=== PATIENT | female | born 1975 | race Caucasian/White ===

== ENCOUNTER 2021-09-08 13:43 | Inpatient (IN) | payer OTHER ==
[~2021-09-08] VITALS: Ht 154.9 cm; Wt 83.0 kg
[2021-09-08] MEDS ORDERED: CARDIZEM CD240 MG PO (15:04)
[2021-09-08] MEDS ORDERED: CITALOPRAM HBR10 MG PO (15:04)
[2021-09-08] MEDS ORDERED: LOSARTAN POTAS100 MG PO (15:05)
[2021-09-08] MEDS ORDERED: FAMOTIDINE20 MG PO (15:05)
[2021-09-08] MEDS ORDERED: CLEARLAX119 GM PO (15:05)
[2021-09-08] MEDS ORDERED: SENNA PLUS 8.61 EACH PO (15:06)
[2021-09-08] MEDS ORDERED: PROAIR HFA8.5 GM INH (15:06)
[2021-09-08] MEDS ORDERED: AMITRIPTYLINE H25 MG PO (15:06)
[2021-09-08] MEDS ORDERED: METOPROLOL TAR100 MG PO (15:07)
[2021-09-08] MEDS ORDERED: LYRICA300 MG PO (15:07)
[2021-09-08 19:18] LABS: HEMOGLOBIN 11.1 gm/dl (12.3-15.3); RED BLOOD COUNT 3.65 M/UL (4.00-5.10); WHITE BLOOD COUNT 7.1 K/UL (4.5-11.0)
[2021-09-08 19:32] LABS: BUN/CREATININE RATIO 5 (0-10)
--- NOTE | 2021-09-09 17:54 | NUR ---
montaño catheter discontinued with 350 ml yellow urine out.pt tolerated well.
[2021-09-10] MEDS ORDERED: NICOTINE PATCH1 EAC2 TD (12:01)
== END 2021-09-10 14:16 | disposition home or self-care (01) | DRG 389 ==
LOC: MED SURG 4 13:43
PROVIDERS: ADMIT Internal Medicine
DX: K56.600 Partial intestinal obstruction, unspecified as to cause (principal); N17.9 Acute kidney failure, unspecified; Z20.822 Contact with and (suspected) exposure to COVID-19; A08.0 Rotaviral enteritis; I69.351 Hemiplegia and hemiparesis following cerebral infarction affecting right dominant side; A04.72 Enterocolitis due to Clostridium difficile, not specified as recurrent; E87.2 Acidosis; I10 Essential (primary) hypertension; F32.A Depression, unspecified; G43.909 Migraine, unspecified, not intractable, without status migrainosus; I95.9 Hypotension, unspecified; J44.9 Chronic obstructive pulmonary disease, unspecified; F17.210 Nicotine dependence, cigarettes, uncomplicated; E86.0 Dehydration; I69.320 Aphasia following cerebral infarction; Z74.01 Bed confinement status; Z99.3 Dependence on wheelchair; Z98.51 Tubal ligation status; Z98.890 Other specified postprocedural states; Z83.3 Family history of diabetes mellitus; Z81.8 Family history of other mental and behavioral disorders; Z83.79 Family history of other diseases of the digestive system; Z81.1 Family history of alcohol abuse and dependence
CPT/HCPCS: 36415; 71045; 80053; 81001; 83605; 83735; 84100; 85025; 85610; 85730; 86140; 87040; 87086; 93005; 94760; 97161; 97166; C9113; J1644; J1650; J1956